=== PATIENT | female | born 1990 | race African-American/Black ===

== ENCOUNTER 2016-06-20 13:26 | Emergency (ER) | payer MEDICAID ==
[~2016-06-20] VITALS: Ht 154.9 cm; Wt 113.4 kg
[2016-06-20 13:36] VITALS: BP_SYST 150
[2016-06-20] MEDS: KETOROLAC TROMETHAMINE 60 MG/2 ML VIAL IM ONE (14:36)
[2016-06-20] MEDS: DEXAMETHASONE SOD PHOSPHATE 10 MG/ML VIAL IM ONE (14:36)
[2016-06-20] MEDS: PENICILLIN G BENZATHINE 1.2 MMU/2 ML SYR IM ONE (14:36)
[2016-06-20 14:41] VITALS: BP_SYST 125
== END 2016-06-20 14:41 | disposition home or self-care (01) ==
LOC: SED 13:26
DX: J03.90 Acute tonsillitis, unspecified (principal); R03.0 Elevated blood-pressure reading, without diagnosis of hypertension
CPT/HCPCS: 96372; 99284; J0561; J1100; J1885

== ENCOUNTER 2016-08-14 18:24 | Emergency (ER) | payer MEDICAID ==
[~2016-08-14] VITALS: Ht 157.5 cm; Wt 113.4 kg
[2016-08-14 18:30] VITALS: BP_SYST 133
--- NOTE | 2016-08-14 18:40 | NUR ---
Patient to ER bed 3 to gown for evaluation. Side rails up. Report given to Rosibel CRYSTAL.
--- NOTE | 2016-08-14 18:49 | NUR ---
KIM MASCORRO at bedside examining patient.
--- NOTE | 2016-08-14 18:51 | NUR ---
here for sorethroat x1 day,abscess to left inner thigh,swelling,no drainages.
[2016-08-14] MEDS ORDERED: LIDOCAINE/EPI 2% 1:100000 20 ML VIAL INJ ONE (19:00)
[2016-08-14] MEDS ORDERED: PENICILLIN G BENZATHINE 1.2 MMU/2 ML SYR IM ONE (19:00)
[2016-08-14] MEDS ORDERED: DEXAMETHASONE SOD PHOSPHATE 10 MG/ML VIAL IM ONE (19:00)
[2016-08-14] MEDS ORDERED: IBUPROFEN 800 MG TABLET PO ONE (19:00)
--- NOTE | 2016-08-14 19:07 | NUR ---
endorsed care to shift coordinator Irineo CRYSTAL
[2016-08-14 19:25] VITALS: BP_SYST 133
--- NOTE | 2016-08-14 19:25 | NUR ---
Patient given written and verbal discharge instructions and verbalizes understanding. ER SHELLFISH CHECKER discussed with patient the results and treatment provided. Patient in stable condition. ID arm band removed. Rx of Bacrim, Keflex, prednisone, and Motrin given. Patient educated on pain management and to follow up with PMD. Pain Scale 0/10. Opportunity for questions provided and answered. No adverse drug reactions noted.
== END 2016-08-14 19:25 | disposition home or self-care (01) ==
LOC: SED 18:24
DX: L02.416 Cutaneous abscess of left lower limb (principal); J02.9 Acute pharyngitis, unspecified
CPT/HCPCS: 10060; 96372; 96374; 99284; J0561; J1100

== ENCOUNTER 2016-11-05 15:21 | Emergency (ER) | payer MEDICAID ==
[~2016-11-05] VITALS: Ht 157.5 cm; Wt 113.4 kg
--- NOTE | 2016-11-05 15:24 | NUR ---
Pt was brought to bed 5 and report was endorsed by Stuart
--- NOTE | 2016-11-05 15:25 | NUR ---
ER MIMI Brand at bedside examining patient.
--- NOTE | 2016-11-05 15:30 | NUR ---
Pt complains of rash to face since yesterday morning, pt states has been taking bactrim since Friday and the rash appeared yesterday morning, denies SOB, pain or rash anywhere other than the face. No other injuries/complaints per pt or noted.
[2016-11-05 15:36] VITALS: BP_SYST 133
[2016-11-05 16:12] VITALS: BP_SYST 133
--- NOTE | 2016-11-05 16:12 | NUR ---
Patient given written and verbal discharge instructions and verbalizes understanding. ER MD discussed with patient the results and treatment provided. Patient in stable condition. ID arm band removed. Rx of motrin, cipro, pyridium and zyrtec given. Patient educated on pain management and to follow up with PMD. Pain Scale 0. Opportunity for questions provided and answered.
== END 2016-11-05 16:12 | disposition home or self-care (01) ==
LOC: SED 15:21
DX: L27.0 Generalized skin eruption due to drugs and medicaments taken internally (principal); T50.995A Adverse effect of other drugs, medicaments and biological substances, initial encounter; Z98.890 Other specified postprocedural states; Y92.89 Other specified places as the place of occurrence of the external cause
CPT/HCPCS: 81025; 99283

== ENCOUNTER 2016-11-22 17:51 | Emergency (ER) | payer MEDICAID ==
[~2016-11-22] VITALS: Ht 157.5 cm; Wt 113.4 kg
[2016-11-22 18:11] VITALS: BP 137/70; PULSE 87; RESP 20; TEMP 97.7; O2SAT 98
[2016-11-22] MEDS ORDERED: AMOXICILLIN 500 MG CAPSULE PO ONE (20:15)
[2016-11-22 20:24] VITALS: BP 135/77; PULSE 84; RESP 20; TEMP 97.5; O2SAT 99
== END 2016-11-22 20:24 | disposition home or self-care (01) ==
LOC: SED 17:51
DX: K08.89 Other specified disorders of teeth and supporting structures (principal)
CPT/HCPCS: 99283

== ENCOUNTER 2017-10-17 23:50 | Emergency (ER) | payer MEDICAID ==
[~2017-10-17] VITALS: Ht 157.5 cm; Wt 102.1 kg
[2017-10-17 23:50] VITALS: BP_SYST 138
[2017-10-18 01:02] LABS: BILIRUBIN,URINE NEGATIVE (NEGATIVE); BLOOD, URINE NEGATIVE (NEGATIVE); CLARITY/URINE CLEAR (CLEAR); COLOR,URINE YELLOW (YELLOW); GLUCOSE,URINE NEGATIVE (NEGATIVE); KETONES,URINE NEGATIVE (NEGATIVE); LEUKOCYTE ESTERASE ,URINE NEGATIVE (NEGATIVE); NITRITE, URINE NEGATIVE (NEGATIVE); PH,URINE 5.5 (5.0-8.0); PROTEIN URINE NEGATIVE (NEGATIVE); UROBILINOGEN,URINE 0.2 (0.2-1.0)
[2017-10-18 01:16] LABS: BARBITURATE, URINE NEGATIVE (NEG <=200); BENZODIAZEPINE, URINE NEGATIVE (NEG <=150); CANNABINOID, URINE NEGATIVE (NEG <=50); COCAINE, URINE NEGATIVE (NEG <=150); METHAMPHETAMINES SCREEN,URINE NEGATIVE (NEG <=500); OPIATE, URINE NEGATIVE (NEG <=100); PHENCYCLIDINE SCREEN,URINE NEGATIVE (NEG <=25); UR TRICYCLIC ANTIDEPRESSANTS NEGATIVE (NEG <=300); URINE AMPHETAMINE NEGATIVE (NEG <=500); URINE METHADONE NEGATIVE (NEG <=200); URINE OXYCODONE SCREEN NEGATIVE (NEG <=100); URINE PROPOXYPHENE SCREEN NEGATIVE (NEG <=300)
[2017-10-18 01:24] LABS: BASOPHILS # (AUTO) 0.1 K/uL (0.0-0.2); BASOPHILS % (AUTO) 0.8 % (0.0-2.0); EOSINOPHILS # (AUTO) 0.1 K/uL (0.0-0.4); HEMOGLOBIN 13.2 g/dL (12.0-16.0); LYMPHOCYTES # (AUTO) 2.3 K/uL (1.0-5.5); LYMPHOCYTES % (AUTO) 34.6 % (20.5-51.5); MEAN CORPUSCULAR HEMOGLOBIN 30 pg (27-31); MEAN CORPUSCULAR HGB CONC 34 % (32-36); MEAN CORPUSCULAR VOLUME 90 fL (79.0-98.0); MONOCYTES # (AUTO) 0.8 K/uL (0.0-1.0); MONOCYTES % (AUTO) 11.8 % (1.7-9.3); NEUTROPHILS # (AUTO) 3.4 K/uL (1.8-7.7); NEUTROPHILS % (AUTO) 50.8 % (40.0-70.0); PLATELET COUNT (AUTO) 204 K/uL (130-430); RED BLOOD CELL COUNT(AUTO) 4.35 MIL/uL (4.2-6.2); RED CELL DISTRIBUTION WIDTH 12.3 % (9.0-15.0); WHITE BLOOD COUNT (AUTO) 6.7 K/uL (4.8-10.8)
[2017-10-18 01:39] LABS: CALCIUM 8.6 mg/dL (8.4-11.0); CHLORIDE 108 mmol/L (98-107); CREATININE 0.83 mg/dL (0.55-1.30); GLUCOSE 98 mg/dL (70-99); POTASSIUM 4.3 mmol/L (3.5-5.1); SODIUM SERUM 137 mmol/L (136-145); UREA NITROGEN, BLOOD 12 mg/dL (8-21)
[2017-10-18 01:54] LABS: ALANINE AMINOTRANSFERASE 30 U/L (12-78); ALBUMIN 3.6 g/dL (3.4-4.8); ANION GAP < 3 (5-15); ASPARTATE AMINOTRANSFERASE 17 U/L (10-37); GFR AFRICAN AMERICAN 105 mL/min (>90); THYROID STIMULATING HORMONE 5.16 uIu/mL (0.34-4.82); TOTAL BILIRUBIN 0.4 mg/dL (0.0-1.0)
[2017-10-18 02:10] VITALS: BP_SYST 133
== END 2017-10-18 02:10 | disposition home or self-care (01) ==
LOC: SED 23:50
DX: R53.83 Other fatigue (principal); R94.6 Abnormal results of thyroid function studies; E03.9 Hypothyroidism, unspecified; R03.0 Elevated blood-pressure reading, without diagnosis of hypertension
CPT/HCPCS: 36415; 80053; 80307; 81003; 84443-TC; 85025; 99284

== ENCOUNTER 2018-06-24 18:56 | Emergency (ER) | payer MEDICAID ==
[~2018-06-24] VITALS: Ht 157.5 cm; Wt 115.2 kg
[2018-06-24 19:06] VITALS: BP_SYST 137
--- NOTE | 2018-06-24 19:09 | NUR ---
Patient to ER bed 03 for evaluation. Side rails up. Report given to Chris CRYSTAL.
--- NOTE | 2018-06-24 20:18 | NUR ---
ER at bedside examining patient.
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
[2018-06-24] MEDS ORDERED: IBUPROFEN 800 MG TABLET PO ONE (20:30)
--- NOTE | 2018-06-24 20:37 | NUR ---
Pt taken to radiology, in stable condition
--- NOTE | 2018-06-24 20:45 | NUR ---
Pt back from Radiology well tolerated
[2018-06-24 21:32] VITALS: BP_SYST 129
--- NOTE | 2018-06-24 21:32 | NUR ---
Patient given written and verbal discharge instructions and verbalizes understanding. ER MD Aden discussed with patient the results and treatment provided. Patient in stable condition. ID arm band removed. Rx of Ibuprofen, Flexeril given. Patient educated on pain management and to follow up with PMD. Pain Scale 0. Opportunity for questions provided and answered. Medication side effect fact sheet provided.
== END 2018-06-24 21:32 | disposition home or self-care (01) ==
LOC: SED 18:56
DX: S39.012A Strain of muscle, fascia and tendon of lower back, initial encounter (principal); E03.9 Hypothyroidism, unspecified; V89.2XXA Person injured in unspecified motor-vehicle accident, traffic, initial encounter; Y93.89 Activity, other specified; Y92.411 Interstate highway as the place of occurrence of the external cause; Y99.8 Other external cause status
CPT/HCPCS: 72100-TC; 81025; 99283

== ENCOUNTER 2020-11-25 00:50 | Emergency (ER) | payer MEDICAID ==
[~2020-11-25] VITALS: Ht 154.9 cm; Wt 117.0 kg
[2020-11-25 01:00] VITALS: BP_SYST 127
--- NOTE | 2020-11-25 01:10 | NUR ---
patient placed into ER bed 6, Ifeanyi RN has taken over care at this time
--- NOTE | 2020-11-25 01:11 | NUR ---
ER Dr. Hughes at bedside examining patient.
--- NOTE | 2020-11-25 01:25 | NUR ---
Patient coax4 with complaints of pain at this time to front of head with radiation to back of head. no accompnying visual changes or n/v
--- NOTE | 2020-11-25 01:27 | NUR ---
taken to CT at this time./
[2020-11-25] MEDS ORDERED: KETOROLAC TROMETHAMINE 30 MG VIAL IVP ONE (01:30)
[2020-11-25] MEDS ORDERED: NACL 0.9% 1,000 ML IV ONE (01:30)
[2020-11-25] MEDS ORDERED: METOCLOPRAMIDE HCL 10 MG/2 ML VIAL IVP ONE (01:30)
[2020-11-25 02:21] LABS: BASOPHILS % (AUTO) 0.4 % (0.0-2.0); EOSINOPHILS # (AUTO) 0.2 K/uL (0.0-0.4); HEMATOCRIT 40.1 % (36-48); HEMOGLOBIN 13.4 g/dL (12.0-16.0); LYMPHOCYTES # (AUTO) 2.2 K/uL (1.0-5.5); LYMPHOCYTES % (AUTO) 27.1 % (20.5-51.5); MEAN CORPUSCULAR HEMOGLOBIN 30 pg (27-31); MEAN CORPUSCULAR HGB CONC 33 % (32-36); MEAN CORPUSCULAR VOLUME 90 fL (79.0-98.0); MONOCYTES # (AUTO) 1.1 K/uL (0.0-1.0); MONOCYTES % (AUTO) 13.1 % (1.7-9.3); NEUTROPHILS # (AUTO) 4.8 K/uL (1.8-7.7); NEUTROPHILS % (AUTO) 57.4 % (40.0-70.0); PLATELET COUNT (AUTO) 192 K/uL (130-430); RED BLOOD CELL COUNT(AUTO) 4.46 MIL/uL (4.2-6.2); RED CELL DISTRIBUTION WIDTH 13.8 % (9.0-15.0); WHITE BLOOD COUNT (AUTO) 8.3 K/uL (4.8-10.8)
[2020-11-25] MEDS ORDERED: METO-290 PO (02:21)
[2020-11-25 02:24] LABS: CALCIUM 8.8 mg/dL (8.4-11.0); CREATININE 1.02 mg/dL (0.55-1.30)
--- NOTE | 2020-11-25 04:30 | NUR ---
Patient given written and verbal discharge instructions and verbalizes understanding. ER MD discussed with patient the results and treatment provided. Patient in stable condition. ID arm band removed. IV catheter removed intact and dressing applied, no active bleeding. Rx of reglan given. Patient educated on pain management and to follow up with PMD. Pain Scale 0. Opportunity for questions provided and answered. Medication side effect fact sheet provided.
[2020-11-25 04:31] VITALS: BP_SYST 132
== END 2020-11-25 04:30 | disposition home or self-care (01) ==
LOC: SED 00:50
DX: R51.9 Headache, unspecified (principal); E03.9 Hypothyroidism, unspecified; Z79.899 Other long term (current) drug therapy
CPT/HCPCS: 36415; 70450; 76376; 80048; 81025; 85025; 96361; 96374; 96375; 99284; J1885; J2765; J7030

== ENCOUNTER 2021-05-08 14:06 | Emergency (ER) | payer MEDICAID ==
[~2021-05-08] VITALS: Ht 165.1 cm; Wt 113.4 kg
[~2021-05-08 14:06] MED LIST: METO-290 PO
[2021-05-08 14:58] VITALS: BP_SYST 121
--- NOTE | 2021-05-08 15:25 | NUR ---
Patient to ER bed 8 to gown for evaluation. Side rails up. ASSUMED CARE
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
--- NOTE | 2021-05-08 15:32 | NUR ---
DR MARRERO IN ROOM FOR EXAM.
[2021-05-08] MEDS ORDERED: PRED20TA PO (16:03)
[2021-05-08] MEDS ORDERED: CALA TP (16:03)
[2021-05-08] MEDS ORDERED: LORA10TA7 PO (16:03)
[2021-05-08 16:17] VITALS: BP_SYST 127
--- NOTE | 2021-05-08 16:17 | NUR ---
Patient given written and verbal discharge instructions and verbalizes understanding. ER MD discussed with patient the results and treatment provided. Patient in stable condition. ID arm band removed. Rx of CALAMMINE, CLARITIN, PREDNISONE given. Patient educated on pain management and to follow up with PMD. Pain Scale . Opportunity for questions provided and answered. Medication side effect fact sheet provided.
== END 2021-05-08 16:17 | disposition home or self-care (01) ==
LOC: SED 14:06
DX: L25.9 Unspecified contact dermatitis, unspecified cause (principal)
CPT/HCPCS: 99283

== ENCOUNTER 2022-02-04 12:42 | Emergency (ER) | payer MEDICAID ==
[~2022-02-04] VITALS: Ht 157.5 cm; Wt 117.9 kg
[~2022-02-04 12:42] MED LIST changes: +CALA TP; +LORA10TA7 PO; +PRED20TA PO
[2022-02-04 12:59] VITALS: BP_SYST 132
--- NOTE | 2022-02-04 14:26 | NUR ---
ER at bedside examining patient.
[2022-02-04] MEDS ORDERED: KETOROLAC TROMETHAMINE 60 MG/2 ML VIAL IM ONE (14:30)
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
--- NOTE | 2022-02-04 14:40 | NUR ---
PT HCG NEGATIVE. NOTIFIED CERTIFIED ART THERAPIST.
--- NOTE | 2022-02-04 14:43 | NUR ---
PT TO RADIOLOGY DEPT.
--- NOTE | 2022-02-04 15:20 | NUR ---
PT STATES HEADACHE RELIEF FROM TORADOL; LEFT ARM SORENESS FROM INJECTION PROVIDED ICE PACK.
[2022-02-04] MEDS ORDERED: IBUP-1971 PO (16:06)
[2022-02-04 16:14] VITALS: BP_SYST 132
--- NOTE | 2022-02-04 16:15 | NUR ---
Patient given written and verbal discharge instructions and verbalizes understanding. ER MD discussed with patient the results and treatment provided. Patient in stable condition. ID arm band removed. Rx of IBUPROFEN given. Patient educated on pain management and to follow up with PMD. Pain Scale 0/10. Opportunity for questions provided and answered. Medication side effect fact sheet provided.
== END 2022-02-04 16:14 | disposition home or self-care (01) ==
LOC: SED 12:42
DX: G44.209 Tension-type headache, unspecified, not intractable (principal); Z79.899 Other long term (current) drug therapy
CPT/HCPCS: 99284; 70450; 76376; 81025; 96372; J1885